=== PATIENT | male | born 1990 | race Caucasian/White ===

== ENCOUNTER 2016-08-11 15:30 | Inpatient (IN) | payer OTHER ==
[~2016-08-11] VITALS: Ht 172.7 cm; Wt 63.5 kg
[2016-08-11] MEDS ORDERED: LORazepam 1 mg Tablet PO PRN (19:50)
[2016-08-11] MEDS ORDERED: Magnesium Hydroxide 10 mL Oral Concentration PO PRN (19:50)
[2016-08-11] MEDS ORDERED: hydrOXYzine Pamoate 25 mg Capsule PO PRN (19:50)
[2016-08-11] MEDS ORDERED: Benzocaine-Menthol Lozenge 2/Pkg PO PRN (19:50)
[2016-08-11] MEDS ORDERED: Alum-Mag Hydrox-Simeth 30 mL Suspension PO PRN (19:50)
--- NOTE | 2016-08-11 21:54 | NUR ---
ADMISSION NOTE 25 y/o male JUDY'd pt. on 72-hr hold admitted to unit @ 19:05 via stretcher from [facility]. [place] in [place] Pt. had been brought to their ED by police after being found performing naked jumping jacks on a public road and told officers that "psychic gods" had ordered him to do this and asked officers if they could take him to snf so that he could "show respect" to these "psychic gods". Pt. endorsed SHUN valderrama. Denied VH. The pt. told this screen writer lavelle that his reason for being here is: "I'm being fish-fried". Upon clarification he said that this means that "psychic gods talk to me". Also reports these gods are ordering him to fast (of note: he declined offers of dinner or snacks and reports recent weight loss but could not quantify amount). Pt. has been seen drinking water on unit. Pt. denies hx of psychiatric treatment. He reports he is not on any medications and the only time he can remember being on psychiatric meds was when he was in snf recently for 2 months but he could not remember what they were. Reports he went to snf for failure to show in court for DUI charges. Pt. denies hx of violence. Pt. was placed in restraints at [facility] today for a brief time after eloping from the unit and running down the road and law enforcement apprehended him and returned him to the unit. He was calm in our 1:1 assessment. He did twitch intermittently and appeared distracted throughout. Declined offers of PRN medications this evening. Denied SI/HI. Denied pain. Denied trouble sleeping. Medical hx: ACL surgery approx 5 yrs ago. Substance use hx: pt reports last MJ use was 5 yrs ago. No other drug hx. Drinks 2-3 beers once weekly.
--- NOTE | 2016-08-12 05:12 | NUR ---
Nursing Shift Coal Yard Supervisor 11pm to 7am Pt asleep at start of shift and remained asleep for the duration of the night. Pt monitored q 15 minutes for safety location and accountability
--- NOTE | 2016-08-12 12:12 | HP ---
[address] [address] HISTORY AND PHYSICAL PATIENT: DANAE FIGUEROA : 1990 MR#: [id number] ADMIT: 08/11/2016 JOB ID: [id number] IDENTIFICATION OF PATIENT: The patient is a 25-year-old male from [place]. The patient reportedly was admitted under JUDY status through [facility] after being found naked on a highway, performing jumping jacks, identifying that he was hearing auditory command-type hallucinations telling him to do such to lose weight. Reportedly, the patient has a long-term history of previous care through services and a supportive prison network, per nursing staff report. CHIEF COMPLAINT: "The psychic Gods told me that I needed to lose weight. They were going to fish-archer me." HISTORY OF PRESENT ILLNESS: As stated above, the patient is a 25-year-old male, who reportedly was found on a local highway outside of [place], with significant unusual and abnormal behaviors. He reportedly was brought into the emergency department and detained for concerns of grave disability. Per his own report, he readily identifies that his mother is his payee. He indicated that she is not his formal guardian. He reports that he lives in a supportive housing environment, and has his own apartment. He indicated that he has never been employed, but did graduate from high school in [place]. He reports that his mother and father are retired, and also concurrently live in [place]. He reported that he has never been admitted to a psychiatric hospital. He indicated that he has never been on medications for psychiatric reasons. In meeting with myself, the patient made intermittent eye contact. He appeared to be internally preoccupied, and presented with significant difficulties with what appears to be emotional reciprocity difficulties. He reports that he did not receive special education through high school, but did speak with various counselors at times. He denied any recent disturbance of his mood. He indicated that he does hear voices of the psychic Gods, and he indicated that Veronica Fitch is after him. He appeared to be somewhat magical in his presentation and belief system. He reflected that he likes to play multiple video games as his primary interest and hobby. He reports that he is currently unemployed, and never had a job. He identified no significant social support system. He did appear to be having some significant difficulties with stereotypic behaviors with odd and unusual twitching and movements throughout the course interview. PAST MEDICAL HISTORY: Substantial for no reported allergies to medications. Medications of current include none. He denies any recent ongoing medical care. I reviewed documentation through [facility], including laboratory data collected, and also physical exam, and agree with findings. PAST PSYCHIATRIC HISTORY: Essentially none. SOCIAL HISTORY: Currently, the patient lives independently. He indicated that his parents support him financially. He is unemployed, has never had a long-term relationship. He admitted to usage of alcohol, 2-3 beers per week. He indicated his last usage of marijuana was approximately five months ago. He denies any history of trauma or abuse. FAMILY HISTORY: Deferred. DEVELOPMENTAL HISTORY: As noted above. MENTAL STATUS EXAMINATION: General appearance: The patient makes intermittent eye contact. He appears to be internally preoccupied. His speech is limited to concrete yes and no answers. His mood is neutral. His affect is blunted. His thought process shows no evidence of racing thoughts, flight of ideas. He does appear to be somewhat loose and disorganized on presentation. His thought content: He denied any evidence of current suicidal or homicidal ideation. He appears to be responding to internal stimulus, and identifies that the voices of the psychic Gods speak to him. He denies any evidence of homicidal variants. He was alert, oriented to time and place. His attention and concentration intact. Insight and judgment are poor. IMPRESSION: AXIS I: 1. Psychotic disorder, not otherwise specified. 2. Probable autism spectrum disorder. AXIS II: Rule out schizotypal personality features. AXIS III: None. AXIS IV: Stressors are noted for disturbance of primary support system, questions of access of care. AXIS V: Global Assessment of Functioning of current 40. PLAN: 1. Recommendations to discontinue current JUDY status. Recommendations would be to connect with outpatient services of support, including local community-based mental health interventions. 2. No recommendations for immediate medication at this time. FUNMILAYO
[2016-08-12 12:38] VITALS: BP 123/77; PULSE 79; RESP 17
--- NOTE | 2016-08-12 15:21 | NUR ---
Brick Or Block Maker/Counselor S: "I'm here because of the fish archer." O: Patient did not express any SI or HI, and stated he only hears the voices "a little". He rates his anxiety at an 8, and was not sure about his depression. A: Patient was cooperative but flat. He was able to explain his reasons for being here. He stated it was due to the voices and the fish archer. He has been out in the milieu, watching tv and interacting with others somewhat. P:Follow care plan and coordinate with outpatient providers.
--- NOTE | 2016-08-12 15:32 | NUR ---
Observations [id number] Pt very quiet, short answers with staff. He did not attend breakfast or lunch, telling this account underwriter that "I'm trying to lose weight." Pt paced the unit during the day, looking internally preoccupied as well as paranoid at times. He requested from staff 30 bars of soap. When asked to elaborate, pt stated "I need them for the archer fish. The voices told me to ask for 30." Pt appeared distressed that he only obtained five bars of soap instead of the 30 that were requested. Pt did not attend group and isolated to room much of the day or paced unit. Not social with peers unless approached. Observed by this account underwriter twitching- kicking leg at times and moving head to the side. He was observed every 15 minutes of shift as directed.
--- NOTE | 2016-08-12 17:47 | NUR ---
Nursing Notes [id number] S: "I would like to see the doctor and get some psychotropic medications for the voices". O: Patient reporting he is hearing fish voices and Psychic Gods. Per patient, this began when he was living next door to a psychic. Patient reports that the Psychic Gods are telling him that he needs to lose weight by not eating. But they get upset because sometimes he eats anyway. When asked if there are consequences when he doesnt do what they instruct, he said keep me from getting a job and other things. Patient did not want to continue conversation at this time. Denies SI/HI, depression and anxiety. Reports voices. Refused breakfast and lunch. A: Patient stays to self. Appears to be responding to internal stimuli. Guarded. P: Monitor for safety and response to treatment. Follow plan of care.
--- NOTE | 2016-08-13 06:23 | NUR ---
Sleep Adequate sleep through the night with no noted distress or awakening per protocol checks. Total sleep 6.5+ hours.
--- NOTE | 2016-08-13 09:50 | PCM.DIMED ---
Discharge Instructions Date of Service Aug 13, 2016 Dates of Hospitalization Aug 11, 2016 at 19:12 Discharge Diagnosis Discharge Diagnosis Autistic Spectrum DO Schizotypal Personality DO Diet Discharge Diet: No restrictions Activity Discharge Activity: No restrictions Arvin Cannon DO Aug 13, 2016 09:50
[2016-08-13 12:32] VITALS: BP 108/71; PULSE 84; RESP 16
--- NOTE | 2016-08-13 13:50 | DIS ---
[address] [address] DISCHARGE SUMMARY PATIENT: DANAE FIGUEROA : 1990 MR#: [id number] ADMIT: 08/11/2016 JOB ID: [id number] DIS: 08/13/2016 ADMITTING DIAGNOSES: Include: AXIS I: 1. Psychotic disorder, not otherwise specified. 2. Probable autism spectrum disorder. AXIS II: Rule out schizotypal personality features. AXIS III: None. AXIS IV: Stressors were noted for disturbance in primary support system, question of access of care. AXIS V: Global Assessment of Functioning, current 40. DISCHARGE DIAGNOSES: Include: AXIS I: Autism spectrum disorder. AXIS II: Schizotypal personality disorder. AXIS III: None. AXIS IV: Stressors were noted for disturbance in primary support system, question of access of care. AXIS V: Global Assessment of Functioning, current 45. REASON FOR ADMISSION: Patient was a 25-year-old male from [place]. The patient was admitted under JUDY status from [facility] after being found naked on the highway performing jumping jacks, identifying that he was hearing auditory command type hallucinations telling him to lose weight. HOSPITAL COURSE: Throughout hospital course, the patient cooperated with participation in both individual and group activities. He showed significant difficulties with limited social and emotional reciprocity with open identification of magical thinking and a belief that there were psychics that were controlling his life. He identified throughout the hospital course, that he had a neighbor that was part of the [employer] group and that he believed that this individual was commanding him to lose weight through various activities. Throughout hospital course, patient showed no evidence of impairment with care of self. He showed significant adequate dietary and nutrition involvement. He openly identified that he had this belief system which he believes is real and stated that he was willing to return back to his community and receive outpatient referrals for possible evaluation of medication and further services. Throughout hospital course, there was no evidence identified in imminency of danger. No evidence of suicidal or homicidal thought and it was felt the patient was safe to return to his home community. CONDITION AT TIME OF DISCHARGE: On patient's mental status exam, he was bright, cooperative. He maintained intermittent eye contact. He clearly had impairments of both social and emotional reciprocity. His speech was concrete in its nature and description. His mood was neutral. Affect was blunted. His thought process showed no evidence of random flight of ideas, loose or disconnected thinking. Thought content: He denied any evidence of current suicidal, homicidal ideation. There was no evidence of overt hallucinations indicating that he had not heard voices over the past 24 hours and stated that the psychic gods know that he is in the hospital at this time. He remains quite delusional but openly identified a willingness to seek out further assistance in his home community. He was alert, oriented to time and place. Attention and concentration intact. Memory intact in the short term, chcf, recent. Insight and judgment were fair. DISCHARGE PLANS: Include: 1. Referrals to local community based mental health Center, [facility] in [place] for initiation of intake and process a referral for both case management and possible medication management in reference to the patient's delusions. 2. No cause or reason to continue his JUDY status at this time due to absence of gravely disabled criteria. 3. No medications given.
--- NOTE | 2016-08-13 19:25 | NUR ---
Roller Embosser/Counselor: S: "Juanito talks to me." O: Patient slept 6.5 hours last night as per staff. Patient denies S/I and H/I. He reports hearing voices of "the gods." He denies H/I. This junior underwriter attempted to schedule out-patient appointment with [facility] Sawmill Worker, Heather Siddiqi. Left several voice messages and did not get a call back before patient discharged. This junior underwriter provided patient with [facility] telephoe number to schedule and out-patient appointment. A: Patient is cooperative, fair insight, fair judgment. P: Follow the care plan, coordinate with out-patient providers.
--- NOTE | 2016-08-13 19:27 | NUR ---
[id number]. nurs. Discharge note. Pt reporting readiness for discharge. Pt stated aware of events leading to JUDY senior care. Pt did complete part of safety plan and verbalized understanding of need to phone for apt with Heather Siddiqi for f/u apt as unobtainable today pt's family also aware and will help pt f/u. Parents concerned about pt's past difficulties with accessing MH care and pt's poor fo;llow through .Pt discharged with parents to home at 1715.
== END 2016-08-13 17:15 | disposition home or self-care (01) | DRG 757 ==
LOC: MHC 19:12
PROVIDERS: ADMIT Psychiatry & Neurology Psychiatry; ATTEND Psychiatry & Neurology Psychiatry
DX: F84.0 Autistic disorder (principal); F21 Schizotypal disorder